=== PATIENT | female | born 1980 | race Hispanic/Latino ===

== ENCOUNTER 2017-01-06 19:52 | Emergency (ER) | payer OTHER ==
[~2017-01-06] VITALS: Ht 167.6 cm; Wt 72.6 kg
--- NOTE | 2017-01-06 21:35 | ED ANKLE/FOOT INJURY COMPLAINT ---
History of Present Illness General Chief Complaint: Plantar Puncture Wound Stated Complaint: PUNCTURE WOUND L FOOT, UBABLE TO MOVE TOES,SWOLLEN Source: patient, family, old records Exam Limitations: no limitations Vital Signs & Intake/Output Vital Signs & Intake/Output Vital Signs Date Time Temp Pulse Resp B/P B/P Pulse O2 O2 Flow FiO2 Mean Ox Delivery Rate 01/065 97.5 88 16 126/74 100 Room Air 01/06 2015 97.2 86 18 121/80 97 Room Air Allergies Coded Allergies: egg (Severe, HIVES, THROAT ITCHINESS 01/06/17) Uncoded Allergies: NUTS (Severe, HIVES, THROAT ITCHINESS 01/06/17) SHELFISH (Severe, HIVES, THROAT ITCHINESS 01/06/17) Triage Note: PT TO TRIAGE WITH PUNCTURE WOUND TO R FOOT S/P 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 C/O PAIN TO R FOOT, NUMBNESS TO R TOES. NO BLEEDING NOTED. VSS. Triage Nurses Notes Reviewed? yes Occurred: this morning Duration: hour(s): (12), constant Timing: single episode today Severity: moderate, severe Severity Numbers: 8 Pain/Injury Location: Left: Foot. No Modifying Factors: none Associated Symptoms: TINGLING : No Patient currently breastfeeds: No HPI: 36-year-old female presents to ER for evaluation complaining of left foot pain and throbbing aching moderate to severe 10 out of 10 after she states she stepped on one of her daughters earrings earlier this morning. She states that since she's had moderate aching pain worse with weightbearing associated with tingling in her toes. She is medicated Motrin triage with moderate improvement. She is not taken anything else for her symptoms there is no other injury. She states that when she stepped on the earring she was able to remove adhesions entirety Denies chance of embedded foreign body. Last tetanus unknown Past History Travel History Traveled to [place] past 21 day No Medical History Any Pertinent Medical History? none Endocrine: PREDIABETES Surgical History Surgical History: none Psychosocial History What is your primary language Georgian Tobacco Use: Never used Family History Hx Contributory? No Review of Systems Review of Systems Constitutional: Reports: see HPI. All Other Systems: Reviewed and Negative Comments Review of systems: See HPI, All other systems negative. Constitutional, no chills no fever, no malaise HEENT:no sore throat no congestion, Cardiovascular: No chest pain , no palpitation Skin: no rashes, no change in skin Respiratory: No dyspnea no cough no sputum GI: No nausea no vomiting, Muscle skeletal: No joint pain, no joint swelling, no back pain, no neck pain, Neurologic: no headache Psych: No stress Heme/endocrine: No bruising Immunology: No lymphadenopathy Physical Exam Physical Exam General Appearance: well developed/nourished, no apparent distress, alert Leg/Knee/Thigh Left: normal range of motion Comments: Well-developed well-nourished patient in no apparent distress. HEENT: Atraumatic, extraocular motion intact Neck: Supple, FROM Back: FROM Cardiovascular: Regular rate and rhythms no murmurs Respiratory: No respiratory distress. Patient speaking in full complete sentences. Breath sounds clear to auscultation bilaterally: NO W/R/R Upper Extremities: full range of motion Hip/Pelvis: Atraumatic/Stable. FROM. Knee: Atraumatic/stable. FROM. No joint swelling, no effusion. No laxity.No pain with ROM Leg: Atraumatic. Nontender. No edema, 5 out of 5 strength in the lower extremity, normal dorsiflexion of great toe bilaterally, gross sensation is intact, Ankle/Foot: Atraumatic/stable. Superficial abrasion noted to the plantar aspect of the left foot there is no surrounding induration fluctuance tenderness to palpation Skin intact. FROM. No swelling, no effusion. No laxity on exam Pulses: Normal/equal DP/PT pulses bilaterally. Brisk cap refill Neuro: awake, alert, and oriented to person, place and time. There were no obvious focal neurologic abnormalities. Skin: Warm & dry;No appreciable rash on exposed skin Psych: Mood affect normal, normal memory normal judgment. Progress Differential Diagnosis: embedded fb, fx, sprain, contusion Plan of Care: Orders Procedure Date/time Status Durable Medical Equipment 01/06 2209 Active Patient was medicated Motrin in triage with improvement x-ray ordered tetanus IM ordered I discussed with the patient at length all of their results. I had an extensive conversation regarding need for close follow up with their primary care physician this week as well as return precautions. I answered all of their questions, they feel comfortable with the plan and follow-up care. crutches provided (FABI BELL,CALDERON) Diagnostic Imaging: Viewed by Me: Radiology Read. Discussed w/RAD: Radiology Read. Radiology Impression: PATIENT: MICHAEL SERRATO PRESENT AGE: 36 PATIENT ACCOUNT NO: [id number] : 81 LOCATION: [facility] ORDERING PHYSICIAN: CALDERON BELL SERVICE DATE: 01/06/17 EXAM TYPE: RAD - XRY- FOOT COMPLETE, LEFT EXAMINATION: XR FOOT, LEFT CLINICAL INFORMATION: Stepped on during. Evaluate for foreign body within foot. COMPARISON: None. TECHNIQUE: AP, lateral, and oblique views of the left foot. FINDINGS: No acute osseous or articular abnormality involving the left foot. Specifically, there is no appreciable fracture or dislocation of the left foot. No radiopaque foreign bodies are identified. Joint spaces appear grossly preserved. IMPRESSION: No acute fracture or dislocation of the left foot. No radiopaque foreign bodies. DICTATED BY: REBECA PARK MD DATE/TIME DICTATED:01/06/172223 AGENCY OPERATOR:FRANCISCO DATE/TIME TRANSCRIBED:01/06/172223 CONFIDENTIAL, DO NOT COPY WITHOUT APPROPRIATE AUTHORIZATION. <Electronically signed in Other Vendor System> SIGNED BY: REBECA PARK MD 01/06/172227 Departure Departure Time of Disposition: 2209 Disposition: HOME OR SELF CARE Condition: Stable Clinical Impression Primary Impression: Puncture wound of foot Referrals: CARIDAD VALENCIA (PCP/Family) Additional Instructions: Rest ice Tylenol Motrin for pain keep leg elevated crutches when ambulatory. Follow up with your primary care physician, return to ER with any concerns or signs of infection redness warm swelling discharge fever chills Departure Forms: Customer Survey General Discharge Information
--- NOTE | 2017-01-06 22:28 | RADIOLOGY REPORT ---
EXAMINATION: XR FOOT, LEFT CLINICAL INFORMATION: Stepped on during. Evaluate for foreign body within foot. COMPARISON: None. TECHNIQUE: AP, lateral, and oblique views of the left foot. FINDINGS: No acute osseous or articular abnormality involving the left foot. Specifically, there is no appreciable fracture or dislocation of the left foot. No radiopaque foreign bodies are identified. Joint spaces appear grossly preserved. IMPRESSION: No acute fracture or dislocation of the left foot. No radiopaque foreign bodies.
[2017-01-06 22:35] VITALS: BP 126/74
== END 2017-01-06 22:36 ==
LOC: ERH 19:52
DX: S91.332A Puncture wound without foreign body, left foot, initial encounter (principal); W45.8XXA Other foreign body or object entering through skin, initial encounter; Y93.01 Activity, walking, marching and hiking; Y92.9 Unspecified place or not applicable
CPT/HCPCS: 73630-LT; 90471; 90714